=== PATIENT | male | born 1970 | race Caucasian/White ===

== ENCOUNTER → 2018-11-03 | Outpatient (CLI) | payer BC ==
[~2018-11-03] MED LIST: ACET65TA OR; COUM1TAB18 OR; PERC5TAB8 OR; [UNRECOGNIZED DRUG - OTHER]; ibuprofen PO
--- NOTE | 2018-11-08 17:38 | SLEEPCENT ---
DATE OF PROCEDURE:11/03/2018 ORDERED BY: Diamante Victor Nocturnal polysomnography was performed for evaluation of sleep physiology in this patient with snoring and observed apneas and acid reflux. 7 hours and 32 minutes of data were reviewed. There are 303 minutes of sleep identified. Sleep latency was prolonged at 48 minutes. REM latency was normal at 71 minutes. Sleep architecture was fair with some fragmentation midportion of the study. Overall sleep efficiency was 68% due to periods of wake after sleep onset. The patient's electrocardiogram showed sinus rhythm with an average heart rate of 85 beats per minute in the EEG showed normal waveforms for awake and sleep. There were 33 respiratory events identified of 10 seconds in duration or greater for an apnea-hypopnea index of 6.5x five events were exclusive seen in the supine posture were not stage related. Arousals from respiratory events occurred 4.5 times per hour. There no significant oxygen desaturations seen with minimal activity in the limb leads. Limb movement arousal index of 4.7, snoring. IMPRESSION: Mild positional obstructive sleep apnea syndrome (G47.33). Apnea-hypopnea 6.5. RECOMMENDATIONS: Sleep position retraining for avoidance of the supine posture is recommended. Pending response to this therapy should the patient's sleep symptoms persists referral back to sleep disorder center for pressure therapy may be necessary.
== END ==
LOC: M SLEEP 18:55
PROVIDERS: ATTEND Nurse Practitioner Family
DX: G47.33 Obstructive sleep apnea (adult) (pediatric) (principal)

== ENCOUNTER → 2022-02-12 | Outpatient (CLI) | payer BC ==
[~2022-02-12] MED LIST changes: +AMLO1TAB24 PO; +DOXY75CA3 PO; +HYDR12CA PO; +OMEP10CASR PO
== END ==
LOC: M LABSMTC 09:20
PROVIDERS: ATTEND Anesthesiology
DX: Z01.818 Encounter for other preprocedural examination (principal); Z11.52 Encounter for screening for COVID-19

== ENCOUNTER 2022-02-17 09:02 | Day surgery (SDC) | payer BC ==
[~2022-02-17] VITALS: Ht 177.8 cm; Wt 79.4 kg
[~2022-02-17 09:02] MED LIST changes: +LIDOCAINE 2% 100MG/5ML SDV (FOR ANES.) As Ordered ONE; +NS 1,000 ML IV ONE; +propofoL 200 MG/20 ML VIAL As Ordered ONE
[2022-02-17 11:34] VITALS: BP 133/90
== END 2022-02-17 11:30 | disposition home or self-care (01) ==
LOC: M OPP 09:02
PROVIDERS: ATTEND Internal Medicine Gastroenterology
DX: Z12.11 Encounter for screening for malignant neoplasm of colon (principal); K63.5 Polyp of colon; K64.0 First degree hemorrhoids; I10 Essential (primary) hypertension; K21.9 Gastro-esophageal reflux disease without esophagitis; Z79.899 Other long term (current) drug therapy